=== PATIENT | female | born 1955 | race Caucasian/White ===

== ENCOUNTER 2018-08-29 05:56 | Emergency (ER) | payer MEDICAID ==
[~2018-08-29] VITALS: Ht 162.6 cm; Wt 57.9 kg
[2018-08-29 06:02] VITALS: BP 159/106
== END 2018-08-29 07:24 | disposition left against medical advice (07) ==
LOC: ER 05:57
DX: F41.9 Anxiety disorder, unspecified (principal); Z53.21 Procedure and treatment not carried out due to patient leaving prior to being seen by health care provider

== ENCOUNTER 2018-09-28 15:35 | Emergency (ER) | payer MEDICAID | END 2018-09-28 17:56 | disposition left against medical advice (07) | LOC: ER 15:36 | DX: Z04.1 Encounter for examination and observation following transport accident (principal); Z53.21 Procedure and treatment not carried out due to patient leaving prior to being seen by health care provider; V89.2XXA Person injured in unspecified motor-vehicle accident, traffic, initial encounter; Y93.89 Activity, other specified; Y92.89 Other specified places as the place of occurrence of the external cause; Y99.8 Other external cause status ==

== ENCOUNTER 2023-01-02 09:37 | Emergency (ER) | payer MEDICARE, MEDICAID ==
[~2023-01-02] VITALS: Ht 162.6 cm; Wt 65.9 kg
[2023-01-02 09:42] VITALS: BP 141/85
== END 2023-01-02 16:51 | disposition left against medical advice (07) ==
LOC: ER 09:37
DX: M79.604 Pain in right leg (principal); Z53.21 Procedure and treatment not carried out due to patient leaving prior to being seen by health care provider
CPT/HCPCS: 99281

== ENCOUNTER 2023-02-02 10:04 | Emergency (ER) | payer MEDICARE, MEDICAID ==
[~2023-02-02] VITALS: Ht 162.6 cm; Wt 53.6 kg
[2023-02-02 10:06] VITALS: BP 159/88
[2023-02-02 10:47] LABS: CLARITY,URINE SLIGHTLY CLOUDY (Clear); COLOR,URINE YELLOW (Yellow); GLUCOSE, URINE NEGATIVE (Neg); KETONES,URINE TRACE mg/dl (Neg); LEUKOCYTE ESTERASE ,URINE NEGATIVE (Neg); NITRITES, URINE NEGATIVE (Neg); OCCULT BLOOD,URINE TRACE-INTACT (Neg); PROTEIN,URINE NEGATIVE (Neg); UROBILINOGEN,URINE 0.2 E.U/dL (0.2-1.0)
[2023-02-02 10:52] LABS: UA COLLECTION TYPE CLN CATCH MIDSTREAM
[2023-02-02 11:01] LABS: BACTERIA,URINE FEW /HPF (Neg); MUCUS STRANDS MANY /LPF (Neg); SQUAMOUS EPITHELIAL CELL,UR MODERATE /LPF (FEW); WBC,URINE 0-4 /HPF (0-4)
[2023-02-02] MEDS ORDERED: ORPH100T4 PO (12:02)
[2023-02-02] MEDS ORDERED: NAPR-56 PO (12:02)
== END 2023-02-02 12:14 | disposition home or self-care (01) ==
LOC: ER 10:05
DX: M54.50 Low back pain, unspecified (principal); R20.0 Anesthesia of skin
CPT/HCPCS: 81001; 99283